=== PATIENT | male | born 1935 | race Caucasian/White ===

== ENCOUNTER → 2016-07-03 | Outpatient (CLI) | payer MEDICARE ==
[~2016-07-03] MED LIST: ALLOPURINOL300 M1 PO; AMLODIPINE10 MG PO; ASPIRIN 81MG TA81 MG PO; CENTRUM MU9 MG/15 ML PO; FLOMAX 0.4MG C0.4 MG PO; HYDROCODONE BIT PO; KALEXATE1 PDR OR; METOPROLOL SUCC25 M1 PO; NATURE'S BLE2500 MCG SL; NITROGLYCERIN0.4 M1 SL; OXYCONTIN OR; PANTOPRAZOLE40 M1 PO; PENTASA250 MG PO; PLAVIX 75MG TAB75 MG PO; PRANDIN 1 MG TAB1 MG PO; PRAVASTATIN SOD10 MG PO; SODIUM BICARBO650 MG PO; SODIUM POLYSTYRENE SULFONATE PO; TOUJEO300 U/ML SC; [UNRECOGNIZED DRUG - OTHER] OR; [UNRECOGNIZED DRUG - OTHER] OR; [UNRECOGNIZED DRUG - OTHER] PO
--- NOTE | 2016-07-03 12:41 | RADIOLOGY REPORT PS360 ---
CT ABD PELVIS W/O CONTRAST CLINICAL INDICATION: Bladder cancer evaluation. H/O BLADDER CANCER COMPARISON: 09/04/2012 TECHNIQUE: Axial images obtained with sagittal and coronal reformats. PROCEDURE: Oral Contrast: Redicat IV Contrast: None . FINDINGS: There is a new 8 mm nodule in the inferior aspect of the right upper lobe laterally. Could be due to metastatic focus. Not readily apparent on the previous exam. Consider dedicated CT chest for further evaluation. Chronic changes are present in the lower lobes. No focal liver lesion. Prior cholecystectomy. No biliary dilatation. The spleen and adrenal glands are unremarkable. There is atrophy of the pancreas. Prior left nephrectomy. Partially calcified oval density noted in the renal head showing some increased calcification compared to the previous study. There is severe right hydronephrosis and hydroureter with stranding of the periureteral fat. A right ureteral stent is in place with the proximal aspect curled in the region of a dilated right renal pelvis. Proximal right ureter is dilated with stranding of the. Renal and periureteral fat. Distal aspect of the urinary stent is in the region of the urinary bladder. Mild thickening of the urinary bladder nonspecific. There are surgical clips present in the pelvis. There is thickening of the perirectal and presacral fat as before. No focal inflammatory change. There has been partial colectomy with small bowel/sigmoid anastomosis. No intestinal obstruction. There are scattered small lymph nodes in the mesentery's which are nonspecific IMPRESSION: 1. Right ureteral stent present with moderate right hydronephrosis and proximal hydroureter. The stent does appear to be in good position. There is mild thickening of the urinary bladder with minimal stranding of the fat around the bladder which could be related to neoplasm or significant inflammation or even postradiation changes. 2. 8 mm noncalcified nodule right upper lobe inferiorly metastatic disease. Consider dedicated CT chest for further evaluation. 3. Postsurgical changes as described above from prior left nephrectomy and colectomy
== END ==
LOC: RAD 09:45
DX: C67.9 Malignant neoplasm of bladder, unspecified (principal)

== ENCOUNTER 2017-03-11 20:39 | Emergency (ER) | payer MEDICARE ==
[~2017-03-11] VITALS: Ht 180.3 cm; Wt 69.4 kg
[~2017-03-11 20:39] MED LIST changes: +ADULT LOW DOSE81 MG PO; +ATORVASTATIN 4040 MG PO; +PANTOPRAZOLE SO20 MG PO
--- NOTE | 2017-03-11 20:59 | Urgent Treatment Center Report ---
History of Present Issue Date/Time Seen by Provider 03/11/172045 Visit Reason Pt arrived: Presenting Problem: Location if Accident: Onset of symptoms date/time:/ or onset unknown for: Have you (or family members/close friends) recently traveled outside the [place]? If Yes, where/when: Have you had exposure to infectious disease within the past month? TB? Other? Specify: Source patient, RN notes reviewed, family Exam Limitations no limitations Comment 81 year old gentleman presents with bladder pain. Says it started several days ago and he saw Dr Dupont. Dr Dupont started him on Cipro. Was feeling somewhat better, but started feeling worse again last night after mowing the yard. Has a history of bladder cancer. His last procedure was deferred due to malaise and he actually ended up having another cardiac stent instead. He is on dialysis 3 days a week. He states that his bladder hurts, but he can only dribble urine and cannot empty his bladder. No fever. Some nausea due to the pain, but no vomiting. Took some pain medicine that he had left at home but it didn't seem to help. ALLERGIES Coded Allergies: Penicillins (08/16/15) penicillin G (08/16/15) Home Medications Reported Medications Allopurinol 300 MG PO DAILY ASPIRIN (Aspirin) 81 MG PO DAILY LOPERAMIDE HCL (Anti-Diarrheal) 2 MG PO DAILY CYANOCOBALAMIN (VITAMIN B-12) (Vitamin B-12) 2,500 MCG SL DAILY Multivits W-Min/Ferrous Gluc (Centrum Multivit-Mineral Liq) 9 MG PO DAILY Sodium Bicarbonate 650 MG PO BID INSULIN GLARGINE,HUM.REC.ANLOG (Toujeo Solostar) 14 UNITS SC DAILY Sodium Polystyrene Sulfonate (Kionex) 1 PDR PO DAILY INSULIN GLARGINE,HUM.REC.ANLOG (Toujeo Solostar) 300 U SC HYDROCODONE/ACETAMINOPHEN (Hydrocodone-Acetamin 5-217/10) 10 ML PO CLOPIDOGREL BISULFATE (PLAVIX) 75 MG PO DAILY Metoprolol Succinate Xl (Metoprolol ER 25MG) 12.5 MG PO DAILY Nitroglycerin 0.4 MG SL Pantoprazole Sodium (Pantoprazole) 40 MG PO DAILY Pantoprazole Sodium (Pantoprazole 20MG) 20 MG PO BID INSULIN GLARGINE,HUM.REC.ANLOG (Prabha Campbell) 24 SC Aspirin (Adult Low Dose Aspirin EC) 81 MG PO Atorvastatin Calcium (Atorvastatin 40MG) 40 MG PO QHS Discontinued Reported Medications Mesalamine (Pentasa) 250 MG PO PRN PRN CROHNS Amlodipine Besylate (Amlodipine) 10 MG PO DAILY TAMSULOSIN HCL (Flomax 0.4MG) 0.4 MG PO QHS Pravastatin Sodium 10 MG PO History Medical History General Angina: No PR: No Hypertension? Yes Hyperlipidemia? Yes CHF? No COPD? No Asthma? No Anemia? Yes Hernia? No CVA? No Seizures? Yes Diabetes? Yes Insulin Dependent: Yes Insulin Pump: No Home FSBS? Yes UTI? No Stones? Yes GB Disease: Yes Hepatitis? No Arthritis? Yes Cataracts? No Glaucoma? No MRSA? No TB? No Cancer? Yes Site: COLON Immunization HX DT/Tetanus Unknown Flu 2014-FSN Pneumonia Refuses Surgical Hx Previous Surgery?Y Appendix BILAT CATARACT [place] LT NEPHRECTOMY [id number] HEART STINT Family History Family HX Diabetes No CAD Yes Hypertension Yes Hyperlipidemia Yes Cancer Yes TB Yes Social History Smoking Hx Packs/day < 1 Pack Alcohol Alcohol: No Review of Systems All Other Systems Reviewed and Negative Genitourinary see HPI, dysuria, hesitancy. Physical Exam Vital Signs Vital Signs Date Time Temp Pulse Resp B/P Pulse O2 O2 Flow FiO2 Ox Delivery Rate 03/11 2047 97.9 111 20 139/82 99 General Appearance normal appearance, no apparent distress Respiratory Status No: respiratory distress, trachea midline, chest symmetrical. Lung Sounds bilateral: normal breath sounds, lungs clear. Cardiovascular normal exam, regular rate/rhythm, no peripheral edema, no gallop, no JVD, no murmur, no rub Gastrointestinal tenderness (suprapubic tenderness) Extremities non-tender, normal range of motion, normal inspection, normal capillary refill Neurologic alert, normal exam, oriented x 3 Mental status normal mood/affect Medical Decision Making LABS/Meds/Orders Pt receiving controlled substance in ED? No Results/Orders Current Medication Orders Sig/Susan Start time Last Medication Dose Route Stop Time Status Admin Trimethoprim/ 1 TABLET ONCE ONE 03/11 2100 DCr 03/11 Sulfamethoxazole PO 03/11 Trimethoprim/ 0 .STK-MED ONE 03/11 2058 DC Sulfamethoxazole PO Orders Procedure Date/time Status URINARY CATHETER INSERT 03/11 2057 Active URINALYSIS/COMPLETE 03/11 2057 Active Progress [facility] Progress Notes Date 03/11/17 Time 2121 Comment Panchal catheter placed with large amount of urine collected. Nurse did express some difficulty placing catheter. Relief after drainage of the bladder. Departure Departure Time of Disposition 2120 Disposition DC Home or Self Care(routine) Clinical Impression Primary Impression: Urinary problem Secondary Impressions: Prostatitis Qualifiers: Prostatitis type: acute Qualified Code: N41.0 - Acute prostatitis Urinary retention with incomplete bladder emptying Condition STABLE Referrals Kiah ZAPIEN,Yosvany Garzon MD,[place] (Family) Patient Instructions DI for Urinary Retention in Men Discharge Counseling Counseled pt/family regarding diagnosis, test results, medications/RX, home care, follow up needs Prescriptions Current Visit Scripts Sulfamethoxazole/Trimethoprim (Bactrim Ds Tablet) 1 EACH PO BID #28 TAB Phenazopyridine HCl (Pyridium) 100 MG PO BIDP PRN bladder pain #6 TAB at 2125
[2017-03-11] MEDS ORDERED: BACTRIM DS TAB1 EACH PO (21:05)
[2017-03-11] MEDS ORDERED: PYRIDIUM100 M2 PO (21:05)
[2017-03-11 21:35] VITALS: BP 139/82
[2017-03-11 21:50] LABS: URINE BILIRUBIN - DIPSTICK NEGATIVE (NEG); URINE BLOOD 3+ (NEG)
== END 2017-03-11 21:36 | disposition home or self-care (01) ==
LOC: UTC 20:39
PROVIDERS: Emergency Medicine
DX: R33.9 Retention of urine, unspecified (principal); N41.0 Acute prostatitis; I12.0 Hypertensive chronic kidney disease with stage 5 chronic kidney disease or end stage renal disease; N18.6 End stage renal disease; Z99.2 Dependence on renal dialysis; E11.22 Type 2 diabetes mellitus with diabetic chronic kidney disease; E78.5 Hyperlipidemia, unspecified; Z95.5 Presence of coronary angioplasty implant and graft; Z79.02 Long term (current) use of antithrombotics/antiplatelets; Z79.82 Long term (current) use of aspirin; Z79.4 Long term (current) use of insulin; Z79.899 Other long term (current) drug therapy; Z85.51 Personal history of malignant neoplasm of bladder

== ENCOUNTER 2017-04-13 00:24 | Outpatient (CLI) | payer MEDICARE ==
[~2017-04-13] VITALS: Ht 180.3 cm; Wt 68.0 kg
[~2017-04-13 00:24] MED LIST changes: +BACTRIM DS TAB1 EACH PO; +PYRIDIUM100 M2 PO
[2017-04-13 01:30] VITALS: BP 145/71
== END 2017-04-13 01:45 | disposition home or self-care (01) ==
LOC: ER 00:24
DX: R33.9 Retention of urine, unspecified (principal)
CPT/HCPCS: G0463

== ENCOUNTER → 2017-05-24 | Outpatient (CLI) | payer MEDICARE | LOC: LAB 15:03 | DX: N39.0 Urinary tract infection, site not specified (principal); Z85.51 Personal history of malignant neoplasm of bladder ==